=== PATIENT | male | born 1990 | race Caucasian/White ===

== ENCOUNTER 2019-06-16 09:56 | Emergency (ER) | payer SELFPAY ==
[~2019-06-16] VITALS: Ht 180.3 cm; Wt 81.8 kg
[2019-06-16 09:58] VITALS: BP 103/63; Ht 180.3 cm; Wt 81.8 kg
[2019-06-16] MEDS ORDERED: AMOXICILLIN500 M1 PO (10:41)
[2019-06-16] MEDS ORDERED: PREDNISONE20 MG PO (10:41)
== END 2019-06-16 11:08 | disposition home or self-care (01) ==
LOC: D.ER 09:56
DX: J02.9 Acute pharyngitis, unspecified (principal); J06.9 Acute upper respiratory infection, unspecified